=== PATIENT | female | born 1950 | race Caucasian/White ===

== ENCOUNTER 2020-12-02 18:06 | Emergency (ER) | payer MEDICARE, OTHER ==
[~2020-12-02] VITALS: Ht 165.1 cm; Wt 67.6 kg
[2020-12-02] MEDS ORDERED: OLOPATADINE HC2.5 ML OP (18:22)
== END 2020-12-02 20:35 | disposition home or self-care (01) ==
LOC: ED 18:06
PROC: 0HQ1XZZ Repair Face Skin, External Approach (ICD-10-PCS; principal; 2020-12-02)
DX: S01.111A Laceration without foreign body of right eyelid and periocular area, initial encounter (principal); S80.01XA Contusion of right knee, initial encounter; S20.213A Contusion of bilateral front wall of thorax, initial encounter; W01.10XA Fall on same level from slipping, tripping and stumbling with subsequent striking against unspecified object, initial encounter; Z23 Encounter for immunization
CPT/HCPCS: 12011; 90471; 90715; 99283-25

== ENCOUNTER 2023-03-14 09:31 | Day surgery (SDC) | payer MEDICARE, OTHER ==
[~2023-03-14] VITALS: Ht 165.1 cm; Wt 74.5 kg
[~2023-03-14 09:31] MED LIST: OLOPATADINE HC2.5 ML OP
[2023-03-14 09:45] VITALS: BP 157/84
--- NOTE | 2023-03-14 11:46 | NUR ---
03/14/23 1146 Mary Mccollum 1136 PT ARRIVED TO PACU ON 3L AND WAKES EASILY. PT DENIES CONCERNS AND EASILY FALLS BACK TO SLEEP. 1144 MD AT BEDSIDE AND PT WAKES TO TALK TO MD. O2 REMOVED.
[2023-03-14 12:11] VITALS: BP 145/81
--- NOTE | 2023-03-16 12:35 | OR ---
[facility] [address], [place] [address] Signed DATE OF OPERATION: 03/14/2023 SURGEON: Rasheed Morales MD PREOPERATIVE DIAGNOSIS: Colon screening. POSTOPERATIVE DIAGNOSES: 1. Polyps x1, sigmoid colon. 2. Diverticulosis. PROCEDURE: Total colonoscopy to cecum with cold morcellation polypectomy x1. ANESTHESIA: Intravenous sedation, fentanyl 150 mcg and Versed 5 mg. INDICATIONS: A 72-year-old white woman, a patient of BONG Mcelroy. She underwent colonoscopy in 1999, found to have multiple polyps. Subsequent colonoscopy in 2010 was normal. She is symptom free, having no bleeding, diarrhea, or constipation. She is admitted to undergo screening colonoscopy at this time. She understands the risk of bleeding, infection, and perforation. FINDINGS: The prep was excellent. Complete colonoscopy was undertaken to the cecum without question. She had numerous diverticula of the sigmoid and left colon. There was a small polyp that was probably adenomatous located in the sigmoid area between 40 and 50 cm, this was excised with cold morcellation technique. The remaining colon was normal. DESCRIPTION OF PROCEDURE: The patient was brought to the endoscopy suite and placed in lateral decubitus position given intravenous sedation to the point of slurred speech and nystagmus. Digital rectal examination was normal. An Olympus video colonoscope was passed into the rectum and manipulated throughout the colon, ultimately intubating the cecum itself. Abdominal wall stabilization was required to allow for full intubation of the cecum. The ileocecal valve and appendiceal orifice were well visualized. The scope was then withdrawn and examination throughout showed no sign of abnormality until approximately 50 cm from the anal verge, where a Electronically Signed By: RASHEED MORALES MD 03/16/23 1235 PATIENT NAME: PERRI ALEGRIA OPERATIVE REPORT DATE OF : 50 REPORT #: [id number] PHYSICIAN: RASHEED MORALES MD PCP: KEY MIXON DC REPORT IS CONFIDENTIAL AND NOT TO BE RELEASED WITHOUT AUTHORIZATION [facility] [address], [place] [address] Signed small adenomatous-appearing polyp was noted, this was excised with cold morcellation technique. The scope was further withdrawn. Diverticula were additionally noted in the remaining sigmoid. Retroflexed view of the rectum was normal. Scope was removed and the patient was taken to the recovery room in good condition. CONCLUDING DIAGNOSES: 1. Polyps x1 at 50 cm. 2. Diverticulosis. PLAN: Recommend repeat colonoscopy in 5 years or sooner if clinically indicated. In addition, we will recommend high-fiber diet. MD STU Brownlee/[facility] /[id number] cc: BONG Mcelroy Copies: MICHELLE ROSAS ~ Electronically Signed By: RASHEED MORALES MD 03/16/23 1235 PATIENT NAME: PERRI ALEGRIA OPERATIVE REPORT DATE OF : 50 REPORT #: [id number] PHYSICIAN: RASHEED MORALES MD PCP: KEY MIXON DC REPORT IS CONFIDENTIAL AND NOT TO BE RELEASED WITHOUT AUTHORIZATION
== END 2023-03-14 12:22 | disposition home or self-care (01) ==
LOC: OPS 09:31 → DS 09:34 → OPS 12:22 → DS 13:00 → OPS 13:00
PROVIDERS: ATTEND Surgery
PROC: 0DBN8ZX Excision of Sigmoid Colon, Via Natural or Artificial Opening Endoscopic, Diagnostic (ICD-10-PCS; principal; 2023-03-14 13:00)
DX: Z12.11 Encounter for screening for malignant neoplasm of colon (principal); D12.5 Benign neoplasm of sigmoid colon; K57.30 Diverticulosis of large intestine without perforation or abscess without bleeding; Z86.010 Personal history of colon polyps; G47.30 Sleep apnea, unspecified; Z79.899 Other long term (current) drug therapy
CPT/HCPCS: 88305; 99153; G0500; J2250; J3010